=== PATIENT | male | born 1980 | race Caucasian/White ===

== ENCOUNTER 2025-09-17 11:30 | Outpatient (REF) | payer SELFPAY ==
--- OUTSIDE RECORDS SUMMARY | 2025-09-17 10:20 | XMS_ITS | Encounter Summary ---
Author Organization [employer] Address [address] [facility] [address] [place] [address] Care Team Providers Care Tile Erector Name Role Phone Monica Jay MD Primary Care Provider + Reason for Visit * Reason Comments Abdominal Pain Urinary Frequency CO lower abdominal p ain and LBP. Pt states he feels a sharp pain that comes and goes. Complains of increased sensation for urination and inflamed glans penis. Encounter Details Date Type Department Care Team (Late st Contact Info) Description 09/17/2025 10:20 AM EST Office Visit [facility] [address] [place] [phone] Monica Jay MD [address] [place] [address] Elevated blood pressure reading (Primary Dx); Urethritis; Papilloma Social History Tobacco Use Types Packs/Day Years Used Date Smoking Tobacco: Never Passive Smoke Exposure: Never Smokeless Tobacco: Never Tobacco Cessation:Counseling Given: Not Answered Alcohol Use Standard Drinks/Week Comments Never 0 (1 standard drink = 0.6 oz pur e alcohol) Sex and Gender Information Value Date Recorded Sex Assigned at Male 09/17/2025 9:36 AM EST Legal Sex Male 9:33 AM EST Gender Identity Male 09/17/2025 9:36 AM EST Sexual Orientation Don't know 09/17/2025 9: 36 AM EST documented as of this encounter Last Filed Vital Signs Vital Sign Reading Time Taken Comments Blood Pressure 160/100 09/17/2025 10:45 AM EST Pulse 106 09/17/2025 10:04 AM EST Temperature 36.6 C (97.9 F) 09/17/2025 10:04 AM EST Respiratory Rate 16 09/17/2025 10:04 AM EST Oxygen Saturation 97% 09/17/2025 10:04 AM EST Inhaled Oxygen Concentration - - Weight 71.5 kg (157 lb 9.6 oz) 09/17/2025 10:04 AM EST Height 165.1 cm (5' 5 ) 09/17/2025 10:04 AM EST Body Mass Index 26.23 09/17/2025 10:04 AM EST documented in this encounter Progress Notes * Monica Jay MD - 09/17/2025 10:20 AM EST SUBJECTIVE: Mayank Vega is a 44 y.o. year old male who presents for Walk [facility]/abdominal pain. Denies recent illness, injury, or hospitalization. PMH None PSH Fistula perianal on 2016 Soc[employer]x Lives alone, works on odd jobs. Has a AFAB partner, uses condom 100% times. Neg smoking, rec drugs, drinks alcohol 1-2x/year. Acute Concerns: Approximately one month ago, developed a lesion on the shaft of the penis described as either a small white exudate. The lesion resolved after increased hygiene, but he has residual redness around the meatus.Denies current discharge from the penis. Reports intermittent pain and burning at the tip of the penis, sometimes associated with urination but also occurring independently. Denies rash elsewhere on the body. Lower Abdominal and Pelvic Pain Reports onset of lower abdominal and pelvic pain approximately one week ago. Pain is intermittent and sometimes radiates to the penis. Denies fever, chills, or difficulty urinating. Sexual History Reports consistent condom use with AFAB sexual partner. Last unprotected sexual intercourse was twoyears ago. Social History Social History Narrative Lives alone, works on odd jobs. Has a AFAB partner, uses condom 100% times. Neg smoking, rec drugs, drinks alcohol 1-2x/year. Problem List[1] Family History[2] Review of Systems Constitutional: Negative for fever. HENT: Negative for congestion, ear pain, rhinorrhea and sore throat. Eyes: Negative for pain and discharge. Respiratory: Negative for cough and shortness of breath. Cardiovascular: Negative for chest pain. Gastrointestinal: Positive for abdominal pain. Negative for constipation, diarrhea and nausea. Endocrine: Negative for polydipsia. Genitourinary: Positive for dysuria, genital sores and penile pain. Negative for frequency. Musculoskeletal: Negative for arthralgias, back pain and neck pain. Neurological: Negative for dizziness, numbness and headaches. Psychiatric/Behavioral: Negative for agitation. OBJECTIVE: Vitals: 09/17/25 1004 09/17/25 1045 BP: (!) 163/113 (!) 160/100 BP Location: Left arm Right arm Patient Position: Sitting Sitting BP Cuff Size: Adult Adult Pulse: 106 Resp: 16 Temp: 97.9 ??F (36.6 ??C) TempSrc: Temporal SpO2: 97% Weight: 157 lb 9.6 oz (71.5 kg) Height: 5' 5 (1.651 m) Physical Exam Exam conducted with a high lighter present (RENAE Echevarria). Constitutional: Appearance: Normal appearance. HENT: Right Ear: Tympanic membrane and ear canal normal. Left Ear: Tympanic membrane and ear canal normal. Mouth/Throat: Mouth: Mucous membranes are moist. Pharynx: No oropharyngeal exudate or posterior oropharyngeal erythema. Eyes: Pupils: Pupils are equal, round, and reactive to light. Cardiovascular: Rate and Rhythm: Normal rate and regular rhythm. Heart sounds: No murmur heard. Pulmonary: Breath sounds: Normal breath sounds. No wheezing. Abdominal: General: Bowel sounds are normal. Palpations: Abdomen is soft. Tenderness: There is abdominal tenderness in the suprapubic area. There is no guarding or rebound. Genitourinary: Pubic Area: Rash (verruosus lesions on suprapubic area and near left inguinal area) present. Penis: Circumcised. Erythema (on glans) present. No discharge or lesions. Musculoskeletal: General: No tenderness. Normal range of motion. Cervical back: Normal range of motion. No tenderness. Skin: General: Skin is warm. Neurological: General: No focal deficit present. Mental Status: He is alert and oriented to person, place, and time. Psychiatric: Mood and Affect: Mood normal. Problem List Items Addressed This Visit Elevated blood pressure reading - Primary Follow up with the Nurse for blood pressure check in 1 week. Continue with a low sodium diet and regular exercise as tolerated. For BP < or = to 139/89 (or 129/79 for diabetic patients) continue current medication regimen and follow up with PCP in 4 weeks. For BP > or = to 140/90 (or 130/80 for diabetic patients) Start new medication Lisinopril 2.5 mg once a day Follow up with the Nurse for a second blood pressure check in 2-4 weeks if BP 140-150/90+ (or 130-150/80+ for diabetic patients). Refer to CDTM for BP >150/90+. If second Nurse visit is needed: For BP < or = to 139/89 (or 129/79 for diabetic patients) continue current medication regimen and follow up with the PCP in 4 weeks. For BP > or = to 140/90 (or 130/80 for diabetic patients) increase Lisinopril to 5 mg once a day Follow up with the PCP in 4 weeks. Relevant Orders Basic Metabolic Panel TSH with Reflex to Free T4 CBC auto differential Urethritis - FU STI testing, he seems to have mild balanitis - Ordered urine for STI testing. Will initiate treatment based on results. - Advised re use of condoms at all times Relevant Orders HIV-1/2 Antigen and Antibodies, Fourth Generation, with Reflexes Hepatitis Panel, General Syphilis Screen Chlamydia/N. Gonorrhoeae RNA, TMA, Urogenitial POCT Urinalysis (Completed) Papilloma - On pubic area, for few months now. - Genital warts present. Reassurance given that Lesions are expected to resolve spontaneously within one year, otherwise will prescription meds (Imiquimod). Advised not to touch or shave affected area to prevent spread. Follow-up scheduled in 2 months to assess response to treatment and determine need for further intervention. Relevant Orders POCT Urinalysis (Completed) This note was drafted using [employer]ient ([employer]) technology. The patient/patient's guardian has been informed and has consented to the use of this technology: Yes No follow-ups on file. Medications Ordered Prior to Encounter[3] [1] Patient Active Problem List Diagnosis Elevated blood pressure reading Urethritis Papilloma [2] No family history on file. [3] No current outpatient medications on file prior to visit. No current facility-administered medications on file prior to visit. documented in this encounter Miscellaneous Notes * Assessment & Plan Note - Monica Jay MD - 09/17/2025 12:51 PM EST Associated Problem(s): Papilloma - On pubic area, for few months now. - Genital warts present. Reassurance given that Lesions are expected to resolve spontaneously within one year, otherwise will prescription meds (Imiquimod). Advised not to touch or shave affected area to prevent spread. Follow-up scheduled in 2 months to assess response to treatment and determine need for further intervention. * Assessment & Plan Note - Monica Jay MD - 09/17/2025 12:47 PM EST Associated Problem(s): Urethritis - FU STI testing, he seems to have mild balanitis - Ordered urine for STI testing. Will initiate treatment based on results. - Advised re use of condoms at all times * Assessment & Plan Note - Monica Jay MD - 09/17/2025 10:54 AM EST Associated Problem(s): Elevated blood pressure reading Follow up with the Nurse for blood pressure check in 1 week. Continue with a low sodium diet and regular exercise as tolerated. For BP < or = to 139/89 (or 129/79 for diabetic patients) continue current medication regimen and follow up with PCP in 4 weeks. For BP > or = to 140/90 (or 130/80 for diabetic patients) Start new medication Lisinopril 2.5 mg once a day Follow up with the Nurse for a second blood pressure check in 2-4 weeks if BP 140-150/90+ (or 130-150/80+ for diabetic patients). Refer to CDTM for BP >150/90+. If second Nurse visit is needed: For BP < or = to 139/89 (or 129/79 for diabetic patients) continue current medication regimen and follow up with the PCP in 4 weeks. For BP > or = to 140/90 (or 130/80 for diabetic patients) increase Lisinopril to 5 mg once a day Follow up with the PCP in 4 weeks. documented in this encounter Plan of Treatment Upcoming Encounters Date Type Department Care Team (Late st Contact Info) Description 09/25/2025 2:30 PM EST Clinical Support [facility] [address] [place] [phone] 11/14/2025 10:45 AM EST Office Visit [address] [phone] Monica Jay MD [address] [place] [phone] Scheduled Orders Name Type Priority Associated Diagnoses Orde r Schedule HIV-1/2 Antigen and Antibodies, Fourth Generation, with Reflexes Lab Routine Urethritis Expected: 09/17/2025 (Approximate), Expires: 09/17/2026 Hepatitis Panel, General Lab Routine Urethritis Expected: 09/17/2025 (Approximate), Expires: 09/17/2026 Syphilis Screen Lab Routine Urethritis Expected: 09/17/2025 (Approximate), Expires: 09/17/2026 Chlamydia/N. Gonorrhoeae RNA, TMA, Urogenitial Microbiology Routine Urethritis Ordered: 09/17/2025 documented as of this encounter Procedures Procedure Name Priority Date/Time Associated Diagnosis Comments TSH W/REFLEX TO FT4 Routine 09/17/2025 1 1:51 AM EST Elevated blood pressure reading CBC WITH AUTO DIFFERENTIAL Routine 09/17/2025 11:51 AM EST Elevated blood pressure reading BASIC METABOLIC PANEL Routine 09/17/2025 11:51 AM EST Elevated blood pressure reading POCT URINALYSIS DIPSTICK Routine 09/17/2025 10:58 AM EST Urethritis Papilloma documented in this encounter Results * (ABNORMAL) CBC auto differential (09/17/2025 11:51 AM EST) White Blood Count 5.8 4.8 - 10.8 X10*3/uL [facility] Red Blood Count 5.77 4.60 - 5.80 X10*6/uL [facility] Hemoglobin 16.8 14.0 - 18.0 g/dl [facility] Hematocrit 49.1 42.0 - 52.0 % [facility] Mean Corpuscular Volume 85.1 80.0 - 98.0 fL [facility] Mean Corpuscular Hemoglobin 29.1 27.0 - 33.0 pg [facility] Mean Corpuscular HGB Conc 34.2 31.0 - 36.0 g/dl [facility] Red Cell Distribution Width 11.9 11.0 - 16.0 % [facility] Platelet Count 260 160 - 400 X10*3/uL [facility] Mean Platelet Volume 10.5 9.4 - 12.4 fL [facility] Neutrophils Percent Auto 47.0 45 - 73 % [facility] Imm Gran Pct Auto 0.2 0.0 - 0.4 % [facility] Lymphocytes Percent Auto 37.7 20 - 40 % [facility] Monocytes Percent Auto 11.9(H) 2 - 11 % [facility] Eosinophils Percent Auto 2.9 0 - 4 % [facility] Basophils Percent Auto 0.3 0 - 2 % [facility] NRBC Pct Auto 0.0 0.0 - 0.2 /100WBC [facility] Neutrophils Absolute Auto 2.7 2.0 - 8.3 x10*3/uL [facility] Imm Gran Abs Auto 0.01 0.00 - 0.03 X10*3/uL [facility] Lymphocytes Absolute Auto 2.2 1.2 - 4.9 X10*3/uL [facility] Monocytes Absolute Auto 0.7 0.1 - 1.2 X10*3/uL [facility] Eosinophils Absolute Auto 0.2 0.0 - 0.4 X10*3/uL [facility] Basophils Absolute Auto 0.0 0.0 - 0.2 X10*3/uL [facility] NRBC Abs Auto 0.000 0.0 - 0.012 X10*3/uL [facility] Blood Venous blood specimen / Unknown 09/17/2025 11:51 AM EST 09/17/2025 1:03 PM EST Monica Jay MD LAB BLOOD ORDERABLES Fin al Result Performing Organization Address [facility] Co de Phone Number [facility] [address] [place] [phone] * TSH with Reflex to Free T4 (09/17/2025 11:51 AM EST) TSH reflex Free T4 1.79 0.32 - 4.0 uIU/mL [facility] Blood 09/17/2025 11:5 1 AM EST 09/17/2025 1:09 PM EST Monica Jay MD LAB BLOOD ORDERABLES Fin al Result Performing Organization Address [facility] Phone Number [facility] [address] [place] [phone] * (ABNORMAL) Basic Metabolic Panel (09/17/2025 11:51 AM EST) Sodium 140 135 - 145 mmol/L [facility] Potassium 3.7 3.3 - 5.1 mmol/L [facility] Chloride 104 96 - 108 mmol/L [facility] Carbon Dioxide 32(H) 22 - 29 mmol/L [facility] Anion Gap 8(L) 12 - 20 [facility] Urea Nitrogen (BUN) 17(H) 9 - 16 mg/dL [facility] Creatinine, Serum 1.20 0.5 - 1.4 mg/dL [facility] Estimated Glomerular Filt Rate >60 [facility] Comment:Chronic Kidney Disea se: Estimated GFR < 60 mL/min/[id number] Kidney Disease: Estimated GFR < 15 mL/min/1.73m2 Glucose 103 60 - 115 mg/dL [facility] Calcium 9.4 8.4 - 10.2 mg/dL [facility] Blood Venous blood specimen / Unknown 09/17/2025 11:51 AM EST 09/17/2025 1:09 PM EST us Monica Jay MD LAB BLOOD ORDERABLES Fin al Result [facility] [address] [place] [phone] * (ABNORMAL) POCT Urinalysis (09/17/2025 10:58 AM EST) Color, UA Yellow Clarity, UA Clear Glucose, UA Negative Bilirubin, UA Trace (15) Comment:small Ketones, UA Positive Comment:15 mg/ dL Spec Grav, UA 1.025 Blood, UA Positive(A) Negative, None Detected Comment:trace-intact pH, UA 6.0 Protein, UA Trace (15) Comment:30mg/dL Urobilinogen, UA 0.2 Leukocytes, UA Negative Negative, Rare, Trace, 1+ (17), 2+ (35), 3+ (70), Trace (15) Nitrite, UA Negative Negative, None Detected Appearance, UA clear QC Media Lot # [id number] Lot# Expiration Date ,026 Urine (Urine, Random) 09/17/2025 10:58 AM EST us Monica Jay MD POINT OF CARE TEST ENTER /EDIT ORDERABLES Final Result documented in this encounter Visit Diagnoses Diagnosis Elevated blood pressure reading- Primary Elevated blood pressure reading without diagnosis of hypertension Urethritis Unspecified urethritis Papilloma documented in this encounter Care Teams Tile Erector Relationship Specialty Start Date End Date Monica Jay MD [address] [place] [phone] PCP - General Internal Medicine 09/17/25 documented as of this encounter
[2025-09-17 13:10] LABS: MANUAL DIFF FLAG NO
[2025-09-17 13:22] LABS: Hematocrit 49.1 % (42.0-52.0); Hemoglobin 16.8 g/dl (14.0-18.0); Imm Gran Abs Auto 0.01 X10*3/uL (0.00-0.03); Imm Gran Pct Auto 0.2 % (0.0-0.4); Lymphocytes Absolute Auto 2.2 X10*3/uL (1.2-4.9); Mean Corpuscular HGB Conc 34.2 g/dl (31.0-36.0); Mean Corpuscular Hemoglobin 29.1 pg (27.0-33.0); Mean Corpuscular Volume 85.1 fL (80.0-98.0); NRBC Abs Auto 0.000 X10*3/uL (0.0-0.012); NRBC Pct Auto 0.0 /100WBC (0.0-0.2); Platelet Count 260 X10*3/uL (160-400); Red Blood Count 5.77 X10*6/uL (4.60-5.80); White Blood Count 5.8 X10*3/uL (4.8-10.8)
[2025-09-17 14:04] LABS: Anion Gap 8 (12-20); Blood Urea Nitrogen 17 mg/dL (9-16); Calcium 9.4 mg/dL (8.4-10.2); Carbon Dioxide 32 mmol/L (22-29); Chloride 104 mmol/L (96-108); Estimated Glomerular Filt Rate > 60; Potassium 3.7 mmol/L (3.3-5.1); Sodium 140 mmol/L (135-145)
--- OUTSIDE RECORDS SUMMARY | 2025-09-17 14:38 | XMS_ITS | Encounter Summary ---
Author Organization [employer] [facility] Address [address] [place] [address] [address] [place] [address] Care Team Providers Care Woodworking Machine Operator Name Role Phone Monica Jay MD Primary Care Provider + Encounter Details Date Type Department Care Team (Latest Contact Info) Description 09/17/2025 Travel Social History Tobacco Use Types Packs/Day Years Used Date Smoking Tobacco: Never Passive Smoke Exposure: Never Smokeless Tobacco: Never Alcohol Use Standard Drinks/Week Comments Never 0 (1 standard drink = 0.6 oz pur e alcohol) Sex and Gender Information Value Date Recorded Sex Assigned at Male 09/17/2025 9:36 AM EST Legal Sex Male 9:33 AM EST Gender Identity Male 09/17/2025 9:36 AM EST Sexual Orientation Don't know 09/17/2025 9: 36 AM EST documented as of this encounter Plan of Treatment Upcoming Encounters Date Type Department Care Team (Late st Contact Info) Description 09/25/2025 2:30 PM EST Clinical Support [facility] [address] [place] [phone] 11/14/2025 10:45 AM EST Office Visit [facility] [address] [place] [phone] Monica Jay MD [address] [place] [phone] documented as of this encounter Visit Diagnoses Not on filedocumented in this encounter Care Teams Woodworking Machine Operator Relationship Specialty Start Date End Date Monica Jay MD [address] [place] [phone] PCP - General Internal Medicine 09/17/25 documented as of this encounter
--- OUTSIDE RECORDS SUMMARY | 2025-09-17 14:38 | XMS_ITS | Clinical Summary ---
Author Organization [employer] Address [address] [place] [address] [address] [place] [address] Care Team Providers Care Pouncing Lathe Operator Name Role Phone Monica Jay MD Primary Care Provider + Allergies No known active allergies Medications Blood Pressure Monitoring (Blood Pressure Cuff) misc Use daily as prescribed 1 each Active clotrimazole (Lotrimin) 1 % cream Apply topically 2 times daily for 7 days. 30 g 09/17/2025 1:57 PM EST 09/24/20 25 Active Active Problems Problem Noted Date Diagnosed Date Elevated blood pressure reading 09/17/2025 Assessment & Plan (09/17/2025 12:45 PM EST): Follow up with the Nurse for blood [...] up with the PCP in 4 weeks. Urethritis 09/17/2025 Assessment & Plan (09/17/2025 12:47 PM EST): - FU STI testing, he seems to have mild balanitis - Ordered urine for STI testing. Will initiate treatment based on results. - Advised re use of condoms at all times Papilloma 09/17/2025 Assessment & Plan (09/17/2025 12:51 PM EST): - On pubic area, for few months now. - Genital warts present. Reassurance given that Lesions are expected to resolve spontaneously within one year, otherwise will prescription meds (Imiquimod). Advised not to touch or shave affected area to prevent spread. Follow-up scheduled in 2 months to assess response to treatment and determine need for further intervention. Encounters Date Type Department Care Team Description 09/17/2025 10:20 AM EST Office Visit [facility] [address] [place] [address] Monica Jay MD Elevated blood pressure reading (Primary Dx); Urethritis; Papilloma 09/17/2025 Travel from Last 3 Months Social History Tobacco Use Types Packs/Day Years [...] Don't know 09/17/2025 9: 36 AM EST Last Filed Vital Signs Vital Sign Reading [...] Mass Index 26.23 09/17/2025 10:04 AM EST Plan of Treatment Upcoming Encounters Date Type Department Care Team (Late st Contact Info) Description 09/25/2025 2:30 PM EST Clinical Support [facility] [address] [place] [phone] 11/14/2025 10:45 AM EST Office Visit [facility] [address] [place] [address] Monica Jay MD [address] [place] [phone] Health Maintenance Due Date Last Done Comments Depression Screening 1982 HIV Screening 1982 Lipid Panel 1982 SDOH Screening 1982 Disability Screening 1982 Alcohol/Substance Use Screening 1994 Family Planning (PISQ) 1997 HPV Vaccines (1 - Male 3-dos e series) 1997 Hepatitis C Screening 2000 DTaP/Tdap/Td Vaccines (1 - Tdap) 2001 Hepatitis B Vaccines (1 of 3 - 19+ 3-dose series) 2001 COVID-19 Vaccine (1 - 2024-2 6 season) 2025 Influenza Vaccine (#1) 2025 Tobacco Screening 09/17/2026 09/17/2025 Zoster Vaccines (1 of 2) 2032 RSV Patients and Pa tients Aged 60 years or older (1 - 1-dose 75+ series) 2057 HIB Vaccines Aged Out No longer eligi ble based on patient's age to complete this topic Hepatitis A Vaccines Aged Out No long er eligible based on patient's age to complete this topic IPV Vaccines Aged Out No longer eligi ble based on patient's age to complete this topic Meningococcal B Vaccine Aged Out No l onger eligible based on patient's age to complete this topic Meningococcal Vaccine Aged Out No tavares micheal eligible based on patient's age to complete this topic Pneumococcal Vaccine: Pediat rics (0 to 5 Years) and At-Risk Patients (6 to 49) Years Aged Out No longer eligi ble based on patient's age to complete this topic RSV under 20 months Aged Out No longe r eligible based on patient's age to complete this topic Rotavirus Vaccines Aged Out No longer eligible based on patient's age to complete this topic Procedures Procedure Name Priority Date/Time Associated Diagnosis Comments CBC WITH AUTO DIFFERENTIAL Routine 09/17/2025 11:51 AM EST Elevated blood pressure reading TSH W/REFLEX TO FT4 Routine 09/17/2025 1 1:51 AM EST Elevated blood pressure reading BASIC METABOLIC PANEL Routine 09/17/2025 11:51 AM EST Elevated blood pressure reading POCT URINALYSIS DIPSTICK Routine 09/17/2025 10:58 AM EST Urethritis Papilloma from Last 3 Months Results * TSH with Reflex to Free T4 (09/17/2025 11:51 AM EST) TSH reflex Free T4 1.79 0.32 - 4.0 uIU/mL [facility] Blood 09/17/2025 11:5 1 AM EST 09/17/2025 1:09 PM EST us Monica Jay MD LAB BLOOD ORDERABLES Fin al Result [facility] [address] [place] [phone] * (ABNORMAL) CBC auto differential (09/17/2025 11:51 AM EST) White Blood Count 5.8 4.8 - 10.8 X10*3/uL [facility] Red Blood Count 5.77 4.60 - 5.80 X10*6/uL [facility] Hemoglobin 16.8 14.0 - 18.0 g/dl [facility] Hematocrit 49.1 42.0 - 52.0 % [facility] Mean Corpuscular Volume 85.1 80.0 - 98.0 fL [facility] Mean Corpuscular Hemoglobin 29.1 27.0 - 33.0 pg [facility] Mean Corpuscular HGB Conc 34.2 31.0 - 36.0 g/dl [facility] Red Cell Distribution Width 11.9 11.0 - 16.0 % [facility] Platelet Count 260 160 - 400 X10*3/uL [facility] Mean Platelet Volume 10.5 9.4 - 12.4 fL [facility] Neutrophils Percent Auto 47.0 45 - 73 % [facility] Imm Gran Pct Auto 0.2 0.0 - 0.4 % [facility] Lymphocytes Percent Auto 37.7 20 - 40 % [facility] Monocytes Percent Auto 11.9(H) 2 - 11 % [facility] Eosinophils Percent Auto 2.9 0 - 4 % [facility] Basophils Percent Auto 0.3 0 - 2 % [facility] NRBC Pct Auto 0.0 0.0 - 0.2 /100WBC [facility] Neutrophils Absolute Auto 2.7 2.0 - 8.3 x10*3/uL [facility] Imm Gran Abs Auto 0.01 0.00 - 0.03 X10*3/uL [facility] Lymphocytes Absolute Auto 2.2 1.2 - 4.9 X10*3/uL [facility] Monocytes Absolute Auto 0.7 0.1 - 1.2 X10*3/uL [facility] Eosinophils Absolute Auto 0.2 0.0 - 0.4 X10*3/uL [facility] Basophils Absolute Auto 0.0 0.0 - 0.2 X10*3/uL [facility] NRBC Abs Auto 0.000 0.0 - 0.012 X10*3/uL [facility] Blood Venous blood specimen / Unknown 09/17/2025 11:51 AM EST 09/17/2025 1:03 PM EST us Monica Jay MD LAB BLOOD ORDERABLES Fin al Result [facility] [address] [place] [phone] * (ABNORMAL) Basic Metabolic Panel (09/17/2025 11:51 AM EST) Sodium 140 135 - 145 mmol/L [facility] Potassium 3.7 3.3 - 5.1 mmol/L [facility] Chloride 104 96 - 108 mmol/L [facility] Carbon Dioxide 32(H) 22 - 29 mmol/L [facility] Anion Gap 8(L) 12 - 20 [facility] Urea Nitrogen (BUN) 17(H) 9 - 16 mg/dL [facility] Creatinine, Serum 1.20 0.5 - 1.4 mg/dL [facility] Estimated Glomerular Filt Rate >60 [facility] Comment:Chronic Kidney Disea se: Estimated GFR < 60 mL/min/1.27p9Mavdit Kidney Disease: Estimated GFR < 15 mL/min/1.73m2 Glucose 103 60 - 115 mg/dL [facility] Calcium 9.4 8.4 - 10.2 mg/dL [facility] Blood Venous blood specimen / Unknown 09/17/2025 11:51 AM EST 09/17/2025 1:09 PM EST us Monica Jay MD LAB BLOOD ORDERABLES Fin al Result [facility] [address] [place] [phone] * (ABNORMAL) POCT Urinalysis (09/17/2025 10:58 [...] Urine (Urine, Random) 09/17/2025 10:58 AM EST Monica Jay MD POINT OF CARE TEST ENTER /EDIT ORDERABLES Final Result from Last 3 Months Insurance [employer] LIMITED HSN FULL Care Teams Pouncing Lathe Operator Relationship Specialty Start Date End Date Monica Jay MD [address] [place] [phone] PCP - General Internal Medicine 09/17/25
[2025-09-18 04:54] LABS: Syphilis Screen Reactive (Nonreactive)
[2025-09-18 05:24] LABS: HBS Num1 2.17 mIU/mL (0-7.99); HBc Num1 0.19 S/CO (0.00-0.79); HBsAGNum1 0.51 S/CO (0.00-0.99); HIV Num 1 0.06 S/CO (0.00-0.99); Hepatitis A Antibody IgM 0.32 Index (0-0.79); Hepatitis B Surface Antigen Negative (Negative); ~HepC Num1 0.10 S/CO (0.00-0.79); ~Hepatitis A Antibody IgM Nonreactive (Nonreactive); ~Hepatitis B Surface Antibody NONREACTIVE (Nonreactive); ~Hepatitis C Antibody Nonreactive (Nonreactive)
[2025-09-18 05:48] LABS: CT PCR Urine NOT DETECTED (Not Detect.); NG PCR Urine NOT DETECTED (Not Detect.)
[2025-09-25 11:48] LABS: T.Pallidum Particle Agg Test Reactive (Nonreactive)
== END 2025-09-17 11:31 | disposition home or self-care (01) ==
LOC: HO.HHCL 11:30
PROVIDERS: PCP Internal Medicine; Visit Provider Internal Medicine
DX: R03.0 Elevated blood-pressure reading, without diagnosis of hypertension (principal); N34.2 Other urethritis; Z13.29 Encounter for screening for other suspected endocrine disorder; Z11.4 Encounter for screening for human immunodeficiency virus [HIV]; Z20.2 Contact with and (suspected) exposure to infections with a predominantly sexual mode of transmission
CPT/HCPCS: 36415; 80048; 84443; 85025; 86592; 86704; 86706; 86709; 86780; 86803; 87340; 87389; 87491; 87591